=== PATIENT | female | born 1995 | race Caucasian/White ===

== ENCOUNTER → 2021-07-14 | Outpatient (CLI) | payer OTHER | LOC: HYPER 08:23 | PROVIDERS: ATTEND Emergency Medicine | DX: T24.332A Burn of third degree of left lower leg, initial encounter (principal); S81.802A Unspecified open wound, left lower leg, initial encounter; Z79.82 Long term (current) use of aspirin; Z86.73 Personal history of transient ischemic attack (TIA), and cerebral infarction without residual deficits; X19.XXXA Contact with other heat and hot substances, initial encounter; Y93.89 Activity, other specified; Y92.89 Other specified places as the place of occurrence of the external cause; Y99.8 Other external cause status ==